=== PATIENT | female | born 1980 | race Caucasian/White ===

== ENCOUNTER 2021-03-28 15:25 | Emergency (ER) | payer OTHER ==
[2021-03-28 15:48] LABS: HEMOGLOBIN 14.3 gm/dl (12.3-15.3); RED BLOOD COUNT 4.77 M/UL (4.00-5.10); WHITE BLOOD COUNT 13.7 K/UL (4.5-11.0)
[2021-03-28 16:16] LABS: BUN/CREATININE RATIO 8 (0-10)
[2021-03-28] MEDS ORDERED: BACTRIM DS TAB1 EACH PO (16:43)
== END 2021-03-28 17:30 | disposition home or self-care (01) ==
LOC: ER1 15:25
PROVIDERS: Physician Assistant
DX: R55 Syncope and collapse (principal); N39.0 Urinary tract infection, site not specified; F41.9 Anxiety disorder, unspecified; Z90.710 Acquired absence of both cervix and uterus; Z88.0 Allergy status to penicillin
CPT/HCPCS: 71045; 80053; 81001; 82550; 82553; 83874; 84484; 85025; 93005; 96374; 99284; J1200